=== PATIENT | female | born 1955 | race Caucasian/White ===

== ENCOUNTER 2017-01-15 10:30 | Emergency (ER) | payer BC ==
[~2017-01-15] VITALS: Ht 167.6 cm; Wt 85.9 kg
[~2017-01-15 10:30] MED LIST: ACTOS30 MG PO; ADULT LOW DOSE81 M1 PO; AVAPRO150 MG PO; DIOVAN160 MG PO; FENOFIBRATE160 M1 PO; LEXAPRO20 MG PO; LIPITOR10 MG PO; MICROZIDE12.5 M1 PO; PROTONIX40 MG PO; SIMCOR 500/21 TABLET PO; VICTOZA0.6 MG/0.1 SQ; ZOLOFT100 MG PO
[2017-01-15 13:08] LABS: EOSINOPHIL (%) 0.4 % (0-5); IMMATURE GRANULOCYTE (%) 0.2 % (0.0-0.7); LYMPHOCYTE COUNT 2.3 K/uL (1.0-2.8); MCH 27.2 PG (29.0-34.0); MCHC 33.2 G/DL (30.0-36.0); MCV 82.1 FL (83-99); MEAN PLAT.VOLUME 9.7 uM^3 (9.5-12.4); MONOCYTE (%) 4.9 % (3-12); MONOCYTE COUNT 0.2 K/uL (0-0.8); NEUTROPHIL (%) 44.3 % (45-76); PLATELET COUNT 226 K/uL (156-360); RBC DIS.WIDTH-CV 12.7 % (11.8-14.6); RBC DIS.WIDTH-SD 37.9 % (39-53); RED BLOOD COUNT 4.63 M/uL (3.80-5.20); WHITE BLOOD COUNT 4.5 K/uL (4.1-10.2)
[2017-01-15 13:22] LABS: CHLORIDE 104 mEq/L (99-109); POTASSIUM 3.6 mEq/L (3.7-5.4); SODIUM 143 mEq/L (136-147)
[2017-01-15 13:23] LABS: GLUCOSE 122 mg/dL (70-99)
[2017-01-15 13:25] LABS: ANION GAP 13 MEQ/L (2-14)
[2017-01-15 13:27] LABS: GFR ESTIMATE (CALCULATED) > 59 mL/min/
[2017-01-15 13:28] LABS: UREA NITROGEN (BUN) 19 mg/dL (9-23)
[2017-01-15 13:43] LABS: ADD MIUA? YES; BILIRUBIN NEGATIVE; BLOOD NEGATIVE; COLOR AMBER ((YELLOW)); GLUCOSE (STRIP) NEGATIVE; KETONES NEGATIVE; LEUKOCYTES MODERATE; NITRITE NEGATIVE; PROTEIN (STRIP) 30; SPECIFIC GRAVITY 1.029 (1.000-1.030); UROBILINOGEN 0.2 MG/DL (0.2-1.0)
[2017-01-15 13:58] LABS: BACTERIA RARE /HPF; EPITHELIAL CELLS RARE /HPF; MUCUS 2+ /LPF; RED BLOOD CELLS 0-5 /HPF (0-5); WHITE BLOOD CELLS 20-30 /HPF (0-5)
[2017-01-15 14:17] LABS: POINT-OF-CARE METER ID UU13113800
[2017-01-15] MEDS ORDERED: MOTRIN600 MG PO (14:23)
[2017-01-15 15:06] VITALS: BP 110/58
== END 2017-01-15 15:09 | disposition home or self-care (01) ==
LOC: EME 10:30 → EXP 10:30
PROVIDERS: Physician Assistant
DX: J11.1 Influenza due to unidentified influenza virus with other respiratory manifestations (principal); R91.1 Solitary pulmonary nodule; E11.9 Type 2 diabetes mellitus without complications; I10 Essential (primary) hypertension; E78.5 Hyperlipidemia, unspecified; Z79.82 Long term (current) use of aspirin
CPT/HCPCS: 71020; 80048; 81003; 82948; 85025; 87086; 99281; 99285; J1885; J7040

== ENCOUNTER → 2017-07-05 | Outpatient (CLI) | payer BC ==
[~2017-07-05] MED LIST changes: +MOTRIN600 MG PO
== END | disposition home or self-care (01) ==
LOC: CDC 14:52
DX: G56.01 Carpal tunnel syndrome, right upper limb (principal); M79.641 Pain in right hand; R94.31 Abnormal electrocardiogram [ECG] [EKG]
CPT/HCPCS: 93000